=== PATIENT | male | born 1980 | race Caucasian/White ===

== ENCOUNTER 2020-10-13 16:09 | Emergency (ER) | payer BC ==
[~2020-10-13] VITALS: Ht 193 cm; Wt 114.8 kg
--- NOTE | 2020-10-13 16:33 | NUR ---
pt in bed with no signs or symptoms of acute dsitress noted respirations even and unlabored, states that the pain he feels started in ruq and has since moved down into r flank. denies dysuria or vomiting, denies fever. pt reports nausea but states it might be related to anxiety, which he has a history of. call light within reach. urinal at bedside.
[2020-10-13] MEDS ORDERED: MAALOX/HYOSCYAMINE/LIDOCAINE 45 ML BTL PO ONE (17:00)
[2020-10-13] MEDS ORDERED: PLEASE ENTER ALLERGIES MC SCH (17:00)
[2020-10-13] MEDS ORDERED: FAMOTIDINE 20 MG/2 ML IVPush ONE (17:00)
[2020-10-13] MEDS ORDERED: ONDANSETRON 2MG/ML, 2ML IVPush ONE (17:00)
[2020-10-13 17:10] LABS: BASOPHILS % (AUTO) 1 % (0-1); EOSINOPHILS % (AUTO) 1 % (1-7); LYMPHOCYTES % (AUTO) 19 % (22-44); MEAN CORPUSCULAR HEMOGLOBIN 30.4 pg (27.5-34.5); MEAN PLATELET VOLUME 9.8 fL (7.4-10.4); MONOCYTES % (AUTO) 7 % (2-9); NEUTROPHILS % (AUTO) 73 % (42-75); PLATELET COUNT 170 x10^3/uL (130-400); RED BLOOD COUNT 5.32 x10^6/uL (4.38-5.82); RED CELL DISTRIBUTION WIDTH 13.3 % (9.4-14.8)
[2020-10-13 17:11] LABS: MD NO
[2020-10-13 17:20] LABS: ALANINE AMINOTRANSFERASE 114 U/L (12-78); ANION GAP 2 mmol/L (5-15); CALCIUM 8.8 mg/dL (8.5-10.1); CHLORIDE 110 mmol/L (98-107); CREATININE 1.09 mg/dL (0.7-1.3)
[2020-10-13 17:25] LABS: ALKALINE PHOSPHATASE 65 U/L (45-117); BILIRUBIN,TOTAL 0.9 mg/dL (0.2-1.0); TOTAL PROTEIN 7.1 g/dL (6.4-8.2); TROPONIN I < 0.015 ng/mL (0.000-0.045)
--- NOTE | 2020-10-13 17:40 | NUR ---
pt in bed with no signs or symptoms of acute dsitrss noted respiraitons even and unlabored us ongoing at bedside.
[2020-10-13] MEDS ORDERED: SODIUM CHLORIDE 0.9% 1,000ML IVBOLUS ONE (18:00)
[2020-10-13] MEDS ORDERED: SODIUM CHLORIDE FLUSH 10ML SYR IVF ONE (18:00)
[2020-10-13] MEDS ORDERED: MAALOX/HYOSCYAMINE/LIDOCAINE 45 ML BTL ONE (18:04)
[2020-10-13] MEDS ORDERED: ONDANSETRON 2MG/ML, 2ML ONE (18:04)
[2020-10-13] MEDS ORDERED: FAMOTIDINE 20 MG/2 ML ONE (18:05)
[2020-10-13 18:14] LABS: MICROSCOPIC NOT IND
--- NOTE | 2020-10-13 18:56 | NUR ---
ivf completed. lab at bedside for redraw. pt resting comfortably, no wants or needs expressed.
[2020-10-13 19:01] VITALS: BP 119/70
== END 2020-10-13 19:37 | disposition home or self-care (01) ==
LOC: ED 18:34
DX: R10.11 Right upper quadrant pain (principal); R11.0 Nausea; Z87.891 Personal history of nicotine dependence
CPT/HCPCS: 36415; 76700; 80053; 81003; 83690; 84132; 84484; 85025; 93005; 96361; 96374; 96375; 99285; J2405; J7030